=== PATIENT | female | born 1945 | race Caucasian/White ===

== ENCOUNTER 2023-05-07 15:53 | Emergency (ER) | payer MEDICARE, SELFPAY ==
[2023-05-07] VITALS (10 sets, daily range): BP systolic 175–196; BP diastolic 62–77; PULSE 94–114; RESP 18–29; TEMP 36.6–36.7; O2SAT 95
--- NOTE | 2023-05-07 16:15 | DI.RAD_ITS ---
Exam(s) XR PELVIS AP XR FEMUR LT EXAM: XR PELVIS AP and XR femur LT CLINICAL HISTORY: fall, left hip pain. TECHNIQUE: 2D digital imaging was performed of the pelvis and left femur. Five views were obtained. AP pelvis and AP and lateral views of the left femur views were obtained. COMPARISON: None. FINDINGS: BONES: No acute fracture is present. No bony destructive lesion is seen. JOINTS: No dislocation present. Mild degenerative changes are seen in the hips bilaterally. There al so degenerative changes seen at the sacroiliac joints, left greater than right and the lower lumbar s pine. SOFT TISSUE: Normal. IMPRESSION: No acute fracture or dislocation is seen in the pelvis or left femur. DATA REPOSITORY: RADIATION DOSE DELIVERED:
--- NOTE | 2023-05-07 16:26 | ED.GENADUL_ITS ---
Discharge Plan Disposition Patient Disposition: Home Condition: Improving Discharge Details Chief Complaint: Fall/Non TraumaCriteria Clinical Impression: Hip pain, Fall Primary Care Provider: Urmila,Local ED Provider: Pepito Mendez Home Meds and New Rx's Prescriptions: No Action pravastatin 20 mg tablet 20 mg PO DAILY aspirin [Adult Low Dose Aspirin] 81 mg tablet,delayed release (DR/EC) 81 mg PO DAILY Patient Comments: Takes every other day Discharge Instructions Instructions: Leg Pain (ED) Additional Instructions: Please continue with ice rest ibuprofen and acetaminophen at home for pain. Ambulate with a walker as needed. Please return to the emergency department for any worsening symptoms such as recurrent falls weakness numbness bowel or bladder issues severe back pain or other abnormal symptoms Medical Decision Making 78-year-old female presents after mechanical slip and fall from standing onto her left side, hitting her left hip and her head as well as her left forearm, no loss of conscious, no blood thinner use, neurologically intact alert oriented, noted to be tachycardic and hypertensive on arrival likely due to discomfort as she has pain with movement/attempted ambulation, has not been able to bear full weight on left lower extremity, neurovascular exam of limbs intact, discomfort mainly on the lateral/posterior aspect of left hip, no midline spinal tenderness. High clinical suspicion for femoral fracture versus pelvic fracture lower suspicion for spinal cord injury. Low suspicion for intracerebral hemorrhage given mechanism history and physical. No evidence of thoracoabdominal trauma on examination. Will obtain screening x-ray AP pelvis and left femur, Toradol and Lidoderm patch. Disposition pending x-ray result 17: 43 x-rays negative. Patient ambulatory bedside with assistance, has been given a walker for comfort and stability. Home care instructions and return precautions given HPI General Date/Time Provider Initiated Documentation: 05/07/23 16:12 . HPI Narrative: 78-year-old female presents after slip and fall from standing, fell onto her left side sustaining left hip pain, also abrasion to left forearm and right shoulder, did hit the side of her head without loss of conscious. Patient is not on any blood thinners. Behaving normally per patient and family. Has not been able to bear weight on her left lower extremity due to discomfort in her hip region. Denies numbness tingling or other neurologic symptomatology. No abdominal pain or chest pain Related Data Home Medications Medication Instructions Recorded Confirmed aspirin 81 mg tablet,delayed 81 mg PO DAILY 05/07/23 05/07/23 release (Adult Low Dose Aspirin) pravastatin 20 mg tablet 20 mg PO DAILY Cholesterol 05/07/23 05/07/23 Allergies Allergy/AdvReac Type Severity Reaction Status Date / Time bee venom protein (honey bee) AdvReac Intermediate Hives Unverified 05/07/23 16:26 vaccine adjuvant system, AdvReac Intermediate Hives Unverified 05/07/23 16:26 [id number] liposomal [From Shingrix (PF)] varicella-zoster virus AdvReac Intermediate Hives Unverified 05/07/23 16:26 glycoprotein E, recombinant [From Shingrix (PF)] General Stated Complaint: Fall/Non TraumaCriteria AMY: 3 Review of Systems Narrative: Review of Systems Constitutional: negative Eyes: negative ENT: negative Cardiovascular: negative Respiratory: negative Gastrointestinal: negative : negative Musculoskeletal: Hip pain Skin: negative Neurologic: negative Psych: negative PFSH All Active Problems (Updated 05/07/23 @ 17:47 by Pepito Mendez MD) Fall (Acute) Hip pain (Acute) Social History Smoking risk assessment performed?: No Exam Narrative Exam Narrative: Physical Examination General: alert, awake, cooperative, resting comfortably, no acute distress HEENT: normocephalic; PERRL, EOM intact, conjunctiva normal; no nasal discharge; moist mucous membranes, oral and pharyngeal mucosa normal, tolerating secretions Neck: supple, trachea midline; full ROM Chest: normal to inspection Respiratory: normal respiratory effort, speaking in full sentences, clear to auscultation, no wheezing, rales or rhonchi Cardiac: regular rate, regular rhythm, S1S2 intact, no murmurs rubs or gallops GI: abdomen soft, non-tender, non-distended; no palpable mass or hepatosplenomegaly Back: No midline spinal tenderness Skin: Superficial abrasion to left forearm, superficial abrasion to left par ietal scalp without hematoma or palpable Neuro: AAOx3, normal speech, moving all extremities; 5 out of 5 strength upper and lower extremities, sensate bilaterally equally, cranial nerves II through X II intact, normal speech, no truncal ataxia Extremities: Limited extension at left hip due to discomfort, no foreshortening appreciated of leg, DP pulse intact, sensate extremity, soft compartments, able to range toes ankle knee without issue Psych: Appropriate mood and affect Course Vital Signs Vital signs: Vital Signs Temperature 36.7 C 05/07/23 16:01 Pulse 107 H 05/07/23 16:01 Respiratory Rate 18 05/07/23 16:01 Blood Pressure 175/66 H 05/07/23 16:01 Pulse Oximetry 95 05/07/23 16:01 Temperature 36.7 C 05/07/23 16:01 Temperature Source Temporal Artery Scan 05/07/23 16:01 Pulse 107 H 05/07/23 16:01 Respiratory Rate 18 05/07/23 16:01 Blood Pressure 175/66 H 05/07/23 16:01 Blood Pressure Position Sitting 05/07/23 16:01 Pulse Oximetry 95 05/07/23 16:01 Oxygen Delivery Method Room Air 05/07/23 16:01 Oxygen Flow Rate 0 05/07/23 16:01 Pain Level 0 05/07/23 16:19
[2023-05-07] MEDS: Ketorolac 15 MG/ML VIAL IM (16:34)
[2023-05-07] MEDS: Lidocaine 5% Patch 1 PATCH TP (17:03)
--- NOTE | 2023-05-07 17:12 | DI.VRAD_ITS ---
PROCEDURE INFORMATION: Exam: XR Left Femur Exam date and time: 05/07/2023 4:52 PM Age: 78 years old Clinical indication: Other: Fall hip and leg pain TECHNIQUE: Imaging protocol: Radiologic exam of the left femur. Views: 2 views. COMPARISON: CR XR PELVIS AP 05/07/2023 4:49 PM FINDINGS: Bones/joints: No fracture or dislocation. Mild degenerative changes of the hip and knee. Soft tissues: No significant abnormality IMPRESSION: No acute findings Dictated and Authenticated by: Adonis Bee MD. Ordering:ANA Beyer MD
--- NOTE | 2023-05-07 17:12 | DI.VRAD_ITS ---
PROCEDURE INFORMATION: Exam: XR Pelvis Exam date and time: 05/07/2023 4:49 PM Age: 78 years old Clinical indication: Other: Fall, left hip pain TECHNIQUE: Imaging protocol: Radiologic exam of the pelvis. Views: 1 or 2 view. COMPARISON: No relevant prior studies available. FINDINGS: Bones/joints: No fracture or dislocation. Small osteophytes and mild superior joint space narrowing in both hips. Degenerative changes of the visualized lower lumbar spine. Soft tissues: No significant abnormality IMPRESSION: 1. No fracture. 2. Mild bilateral hip osteoarthritis Dictated and Authenticated by: Adonis Bee MD. Ordering:ANA Beyer MD
--- NOTE | 2023-05-08 07:39 | NUR.NOTE ---
Accessed Pt chart to complete the [facility] documentation.
== END 2023-05-07 18:14 | disposition home or self-care (01) ==
PROVIDERS: Emergency Provider Emergency Medicine
DX: S09.90XA Unspecified injury of head, initial encounter (principal); M25.552 Pain in left hip; W19.XXXA Unspecified fall, initial encounter; R00.0 Tachycardia, unspecified; Z79.82 Long term (current) use of aspirin
CPT/HCPCS: 73552; 96372; 99284; 72170; J1885